=== PATIENT | female | born 1965 | race Caucasian/White ===

== ENCOUNTER 2021-08-08 18:28 | Emergency (ER) | payer SELFPAY ==
[~2021-08-08] VITALS: Ht 170.2 cm; Wt 73.8 kg
[2021-08-08 19:09] LABS: BASO # 0.1 K/mm3 (0.0-0.2); BASO % 1.1 % (0.0-2.0); EOS # 0.5 K/mm3 (0.0-0.7); EOS % 5.6 % (0.0-4.0); GRAN # 3.7 K/mm3 (1.4-6.5); GRAN % 43.4 % (42.2-75.2); HEMATOCRIT 41.9 % (37.0-47.0); LYMPH # 3.5 K/mm3 (1.2-3.4); MEAN CELL VOLUME 90 fl (80.0-100.0); MEAN CORPUSCULAR HEMOGLOBIN 30 pg (27-31); MEAN CORPUSCULAR HGB CONC 33 g/dl (33.0-37.0); MEAN PLATELET VOLUME 11.2 fl (7.4-10.4); MONO # 0.7 K/mm3 (0.1-0.6); MONO % 8.4 % (1.7-9.3); PLATELET COUNT 226 K/mm3 (130-400); RED BLOOD COUNT 4.67 M/mm3 (4.10-5.30); REDCELL DISTRIBUTION WIDTH-CV 13.3 % (11.5-14.5)
[2021-08-08 19:27] LABS: ALANINE AMINOTRANSFERASE 18 U/L (0-55); ALBUMIN 3.3 gm/dL (3.5-5.0); ALKALINE PHOSPHATASE 81 U/L (40-150); ANION GAP 15 mmol/L (7-16); AST,SGOT 17 U/L (5-34); BILIRUBIN,TOTAL 0.2 mg/dL (0.2-1.2); BLOOD UREA NITROGEN 13 mg/dL (10-20); CALCIUM 8.6 mg/dL (8.4-10.2); CARBON DIOXIDE 18 mmol/L (22-29); CHLORIDE 109 mmol/L (98-107); CREATININE, serum 0.77 mg/dL (0.57-1.11); GLUCOSE 97 mg/dL (70-99); POTASSIUM 3.8 mmol/L (3.5-4.5); SODIUM 142 mmol/L (136-145)
[2021-08-08 19:34] LABS: TROPONIN-I < 0.010 ng/mL (0.00-0.033)
[2021-08-08] MEDS ORDERED: NORVASC 5MG5 MG/TAB PO (19:49)
[2021-08-08 19:55] VITALS: BP 145/97; PULSE 82
== END 2021-08-08 19:55 | disposition home or self-care (01) ==
LOC: COL.ER 18:28
PROVIDERS: Personal Emergency Response Attendant
DX: I10 Essential (primary) hypertension (principal)

== ENCOUNTER 2021-09-15 23:51 | Emergency (ER) | payer SELFPAY ==
[~2021-09-15] VITALS: Ht 170.2 cm; Wt 71.8 kg
[~2021-09-15 23:51] MED LIST: NORVASC 5MG5 MG/TAB PO
[2021-09-15 23:55] VITALS: TEMP 97.1
[2021-09-16 02:11] VITALS: BP 132/78; PULSE 68
== END 2021-09-16 02:11 | disposition home or self-care (01) ==
LOC: COL.ER 23:51
DX: S16.1XXA Strain of muscle, fascia and tendon at neck level, initial encounter (principal); F17.210 Nicotine dependence, cigarettes, uncomplicated; X50.1XXA Overexertion from prolonged static or awkward postures, initial encounter

== ENCOUNTER 2021-11-05 12:09 | Emergency (ER) | payer SELFPAY ==
[~2021-11-05] VITALS: Ht 170.2 cm; Wt 67.3 kg
[2021-11-05 12:21] VITALS: TEMP 97.9
[2021-11-05 12:32] LABS: COLLECTION METHOD CLEAN CATCH
[2021-11-05 12:35] LABS: BASO # 0.1 K/mm3 (0.0-0.2); BASO % 0.8 % (0.0-2.0); EOS # 0.3 K/mm3 (0.0-0.7); GRAN % 62.7 % (42.2-75.2); HEMOGLOBIN 13.1 g/dl (12.5-16.0); LYMPH # 2.8 K/mm3 (1.2-3.4); LYMPH % 24.8 % (20.0-51.0); MEAN CELL VOLUME 88 fl (80.0-100.0); MEAN CORPUSCULAR HEMOGLOBIN 30 pg (27-31); MEAN CORPUSCULAR HGB CONC 34 g/dl (33.0-37.0); MONO # 0.9 K/mm3 (0.1-0.6); MONO % 8.3 % (1.7-9.3); PLATELET COUNT 250 K/mm3 (130-400); RED BLOOD COUNT 4.44 M/mm3 (4.10-5.30); REDCELL DISTRIBUTION WIDTH-CV 13.7 % (11.5-14.5)
[2021-11-05 12:50] LABS: SQUAMOUS EPITHELIAL 0-2 /hpf (0-10); URINE BACTERIA None Seen /hpf (NONE SEEN); URINE RBC 0-2 /hpf (0-2)
[2021-11-05 12:51] LABS: URINE APPEARANCE Clear (CLEAR/HAZY); URINE BLOOD Negative (NEGATIVE); URINE COLOR Yellow (YELLOW); URINE GLUCOSE Negative (NEGATIVE); URINE KETONE Negative (NEGATIVE); URINE NITRATE Negative (NEGATIVE); URINE PROTEIN(semi-quant) Negative (NEGATIVE); URINE UROBILINOGEN 0.2 E.U/dL (0.2-1.0)
[2021-11-05 12:56] LABS: ALBUMIN 3.6 gm/dL (3.5-5.0); BILIRUBIN,TOTAL 0.3 mg/dL (0.2-1.2); C-REACTIVE PROTEIN 0.62 mg/dL (0.00-0.50); CALCIUM 9.3 mg/dL (8.4-10.2); CREATININE, serum 1.68 mg/dL (0.57-1.11); TOTAL PROTEIN 6.8 gm/dL (6.2-8.1)
[2021-11-05] MEDS ORDERED: CIPRO 500MG TA500 MG PO (14:57)
[2021-11-05] MEDS ORDERED: FLAGYL500 MG PO (14:57)
[2021-11-05] MEDS ORDERED: NORCO 325 MG-51 TAB PO (14:59)
[2021-11-05 15:08] VITALS: BP 123/85; PULSE 81
== END 2021-11-05 15:02 | disposition home or self-care (01) ==
LOC: COL.ER 12:09
PROVIDERS: Nurse Practitioner
DX: K57.32 Diverticulitis of large intestine without perforation or abscess without bleeding (principal); F17.200 Nicotine dependence, unspecified, uncomplicated; Z90.49 Acquired absence of other specified parts of digestive tract
CPT/HCPCS: J2270; J2405; J7030; Q9967

== ENCOUNTER 2021-12-03 19:07 | Emergency (ER) | payer SELFPAY ==
[~2021-12-03] VITALS: Ht 170.2 cm; Wt 66.8 kg
[~2021-12-03 19:07] MED LIST changes: +CIPRO 500MG TA500 MG PO; +FLAGYL500 MG PO; +NORCO 325 MG-51 TAB PO
[2021-12-03 19:14] VITALS: TEMP 98.2
[2021-12-03] MEDS ORDERED: DOXYCYCLINE 10100 MG PO (20:35)
[2021-12-03 20:54] VITALS: BP 150/72; PULSE 76
[2021-12-03] MEDS ORDERED: PREDNISONE20 MG PO (21:41)
== END 2021-12-03 20:54 | disposition home or self-care (01) ==
LOC: COL.ER 19:07
DX: J18.9 Pneumonia, unspecified organism (principal); J44.1 Chronic obstructive pulmonary disease with (acute) exacerbation; Z28.310 Unvaccinated for COVID-19; Z20.822 Contact with and (suspected) exposure to COVID-19
CPT/HCPCS: J7512

== ENCOUNTER 2023-03-04 18:24 | Emergency (ER) | payer OTHER ==
[~2023-03-04] VITALS: Ht 170.2 cm; Wt 61.4 kg
[~2023-03-04 18:24] MED LIST changes: +ASPIRIN 81M81 MG/TA2 PO; +DOXYCYCLINE 10100 MG PO; +EUTHYROX125 MCG PO; +MOTRIN 600600 MG/TAB PO; +PREDNISONE20 MG PO; +PREDNISONE50 MG PO; +PROAIR HFA0.09 MG/AC IH; +TRELEGY ELLIPT1 EACH IH; +ZESTORETIC 12.51 TA1 PO; +ZITHROMAX Z PA250 MG PO; +ZOFRAN ODT4 MG PO
[2023-03-04 18:29] VITALS: TEMP 97.6
[2023-03-04] MEDS ORDERED: ZOFRAN ODT4 MG PO (20:08)
[2023-03-04 20:32] VITALS: BP 136/84; PULSE 85
== END 2023-03-04 20:32 | disposition home or self-care (01) ==
LOC: COL.ER 18:24
DX: K52.9 Noninfective gastroenteritis and colitis, unspecified (principal); F17.200 Nicotine dependence, unspecified, uncomplicated; Z90.49 Acquired absence of other specified parts of digestive tract
CPT/HCPCS: J0780; J2405; J7030

== ENCOUNTER 2023-08-29 16:33 | Emergency (ER) | payer SELFPAY ==
[~2023-08-29] VITALS: Ht 170.2 cm; Wt 72.7 kg
[2023-08-29 16:38] VITALS: BP 150/95; TEMP 98
[2023-08-29] MEDS ORDERED: Ibuprofen 600 MG TAB PO ONE (17:15)
[2023-08-29] MEDS ORDERED: Acetaminophen 500 MG TAB PO ONE (17:15)
[2023-08-29 20:27] VITALS: PULSE 80
== END 2023-08-29 20:28 | disposition home or self-care (01) ==
LOC: COL.ER 16:33
DX: S46.911A Strain of unspecified muscle, fascia and tendon at shoulder and upper arm level, right arm, initial encounter (principal); X50.1XXA Overexertion from prolonged static or awkward postures, initial encounter

== ENCOUNTER 2023-10-01 10:42 | Emergency (ER) | payer SELFPAY ==
[~2023-10-01] VITALS: Ht 170.2 cm; Wt 67.3 kg
[2023-10-01 10:48] VITALS: BP 116/77; PULSE 80; TEMP 97.7
== END 2023-10-01 11:54 | disposition home or self-care (01) ==
LOC: COL.ER 10:42
DX: M25.511 Pain in right shoulder (principal); G89.29 Other chronic pain; F17.210 Nicotine dependence, cigarettes, uncomplicated